=== PATIENT | female | born 1990 | race Caucasian/White ===

== ENCOUNTER 2017-12-29 18:48 | Emergency (ER) | payer SELFPAY ==
[2017-12-29] MEDS ORDERED: Tenofovir/Emtricitabine(*) TAB PO ONE (23:27)
[2017-12-29] MEDS ORDERED: Raltegravir* 400 MG TAB PO ONE (23:27)
[2017-12-29] MEDS ORDERED: Tetan/Diph/Pertus SYR(Tdap)* 0.5 ML SYR(BOOSTRIX) use SYR IM ONE (23:27)
[2017-12-30 00:14] VITALS: BP 00/00
--- NOTE | 2018-01-11 20:35 | ED ---
- HPI Summary HPI Summary: Pt c/o needle stick at work. 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 States she finished assisting with a procedure where the dentist's actions triggered the pt to have a "lot of bleeding". Pt admits when gathering these supplies, she accidentally stuck herself in her left thumb with the used injection (hollow) needle. She milked blood out of the wound after it occurred but it was a minimal amount and wound has since closed. She filed a report and work and is here for further assessment as needed. She denies HIV or Hep and believes she had her Hep B series. She also believes the pt completed his paperwork prior to dental visit to note he is neg for HIV however there was no conversation about updated testing of pt today since incident. - History of Current Complaint Chief Complaint: EDExposureBodyFluid Stated Complaint: NEEDLE STICK Time Seen by Provider: 12/29/17 21:08 PMH/Surg Hx/FS Hx/Imm Hx Previously Healthy: Yes Endocrine/Hematology History: Denies: Hx Anticoagulant Therapy, Hx Blood Disorders, Autoimmune Disease - Immunization History Immunizations Up to Date: Unable to Obtain/Confirm - believes Hep B is UTD but unsure of tetanus Infectious Disease History: No Infectious Disease History: Denies: Hx Human Immunodeficiency Virus (HIV), Hx of Known/Suspected MRSA, Traveled Outside the [place] in Last 30 Days - Social History Occupation: Employed Full-time - dental group fitness assistant department head Alcohol Use: None Hx Substance Use: No Substance Use Type: Reports: None Hx Tobacco Use: No Smoking Status (MU): Never Smoked Tobacco Review of Systems Positive: no symptoms reported Musculoskeletal: Negative Skin: Other - pipoint needle stick area Neurological: Negative Positive: Anxious All Other Systems Reviewed And Are Negative: Yes Physical Exam Triage Information Reviewed: Yes Vital Signs On Initial Exam: Initial Vitals Temp Pulse Resp BP Pulse Ox 99.4 F 69 18 124/66 99 12/29/17 18:58 12/29/17 18:58 12/29/17 18:58 12/29/17 18:58 12/29/17 18:58 Vital Signs Reviewed: Yes Appearance: Positive: Well-Appearing, No Pain Distress, Well-Nourished Skin: Positive: Warm, Skin Color Reflects Adequate Perfusion, Dry - pipoint area near base of thumb - no ecchymosis, no erythema, no edema - mild TTP Head/Face: Positive: Normal Head/Face Inspection Eyes: Positive: EOMI ENT: Positive: Hearing grossly normal Respiratory/Lung Sounds: Positive: Breath Sounds Present Cardiovascular: Positive: Pulses are Symmetrical in both Upper and Lower Extremities Musculoskeletal: Positive: Normal, Strength/ROM Intact Neurological: Positive: Normal, Sensory/Motor Intact, Alert, Oriented to Person Place, Time, CN Intact II-III Psychiatric: Positive: Anxious Diagnostics - Vital Signs Vital Signs Temp Pulse Resp BP Pulse Ox 12/30/17 00:11 0 F 0 0 00/00 12/29/17 18:58 99.4 F 69 18 124/66 99 - Laboratory Lab Results: Lab Results 12/29/17 12/29/17 Range/Units 20:10 20:15 Beta HCG, Quant < 0.60 mIU/mL Hepatitis B Antibody Reactive A (Nonreactive) Hep Bs Antigen Nonreactive (Nonreactive) Hep Bs Antibody, Quant 139.38 (<12) mIU/mL Hepatitis C Antibody Nonreactive (Nonreactive) HIV 1&2 Antibody Rapid Nonreactive (Nonreactive) HIV 1&2 Antibody Nonreactive (Nonreactive) Lab Statement: Any lab studies that have been ordered have been reviewed, and results considered in the medical decision making process. Needlestick Course/Dx - Course Course Of Treatment: Due to nature of injury, advised PEP until source pt may be tested. If he does not agree to testing, encouraged pt to f/u w/ infectious disease for further guidance re: medication, tesing, etc before medication is completed. Otherwise, she will f/u w/ ID or retesting in 3, 6 ,12 months. - Diagnoses Provider Diagnoses: Needle stick injury of finger, Exposure to potential infection Discharge - Sign-Out/Discharge Documenting (check all that apply): Discharge - Discharge Plan Condition: Stable Disposition: HOME Prescriptions: Raltegravir* [Isentress*] 400 mg PO BID #14 tab Tenofovir/Emtricitabine(*) [Truvada*] 1 tab PO DAILY #7 tab Patient Education Materials: Postexposure Prophylaxis (ED) Referrals: Alondra GILMORE,Tomi Felder [Medical Doctor] - Additional Instructions: Call your work contact and service clerks supervisor in the morning to discuss the need to request blood testing for source patient. If patient is located and agrees to testing, continue medications until results are finalized. At that time, a decision may be made whether it's necessary to continue taking medications or not. Follow-up with Dr. Munoz tomorrow to schedule appointment to discuss when it is safe to stop or if you need to continue medications. It is important that you call Dr. Munoz before you complete your medication as he will be refilling medications as needed. - Billing Disposition and Condition Condition: STABLE Disposition: HOME
== END 2017-12-30 00:11 | disposition home or self-care (01) ==
LOC: ED 18:48
DX: S61.032A Puncture wound without foreign body of left thumb without damage to nail, initial encounter (principal); Z77.21 Contact with and (suspected) exposure to potentially hazardous body fluids; W27.3XXA Contact with needle (sewing), initial encounter; Y92.531 Health care provider office as the place of occurrence of the external cause
CPT/HCPCS: 36415; 84702; 86703; 86706; 86803; 87340; 90471; 90715; 99282